=== PATIENT | male | born 1970 | race Caucasian/White ===

== ENCOUNTER → 2017-03-06 | Outpatient (CLI) | payer BC ==
[~2017-03-06] MED LIST: ASCO-96 PO; CHOL500050 PO; IBUP200T5 PO; KETO10TA PO; LOSA50TA6 PO; MAGNESIUM PO; MELA10TA PO; MINO50TA2 PO; MULT-412 PO; OXYC1TAB9 PO; RANI150T4 PO; SULF15DR5 EACHEYE; TAMS0.4C2 PO; TIZA6CAP PO
[2017-03-06 10:14] LABS: ASPARTATE AMINO TRANSFERASE 14 U/L (15-37); BLOOD UREA NITROGEN 17 mg/dL (7-18)
== END | disposition home or self-care (01) ==
LOC: STAR 09:03
PROVIDERS: ATTEND Urology
DX: Z01.818 Encounter for other preprocedural examination (principal); N21.1 Calculus in urethra
CPT/HCPCS: 36415; 80053; 81001; 87086

== ENCOUNTER 2017-03-10 10:44 | Day surgery (SDC) | payer BC ==
[~2017-03-10] VITALS: Ht 175.3 cm; Wt 84.0 kg
[2017-03-10] MEDS ORDERED: LACTATED RINGERS 1,000 ML IV SCH (11:05)
[2017-03-10 11:06] VITALS: BP 126/89
[2017-03-10] MEDS ORDERED: LIDOCAINE 1%, 2ML SQ PRN (11:30)
[2017-03-10] MEDS ORDERED: MIDAZOLAM 1 MG/ML, 2ML ONE (14:46)
[2017-03-10] MEDS ORDERED: FENTANYL PF 250 MCG/5ML ONE (14:46)
[2017-03-10] MEDS ORDERED: OXYcodone/APAP 10/325MG TABLET ONE (16:23)
[2017-03-10] MEDS ORDERED: OXYcodone/APAP 10/325MG TABLET PO ONE (16:30)
[2017-03-10] MEDS ORDERED: PROPOFOL 10 MG/ML, 20ML ONE (16:58)
[2017-03-10] MEDS ORDERED: ONDANSETRON 2MG/ML, 2ML ONE (16:58)
[2017-03-10] MEDS ORDERED: DEXAMETHASONE 4 MG/ML, 1ML ONE (16:58)
[2017-03-10] MEDS ORDERED: PHENYLEPHRINE 10 MG/ML ONE (16:58)
[2017-03-10] MEDS ORDERED: CIPROFLOXACIN/PMX 400MG/200ML 0 ML ONE (17:16)
[2017-03-10] MEDS ORDERED: CIPROFLOXACIN/PMX 400MG/200ML 200 ML ONE (17:17)
[2017-03-10] MEDS ORDERED: hydrALAzine 20 MG/ML, 1ML IV PRN (17:30)
[2017-03-10] MEDS ORDERED: MEPERIDINE/PF 25MG/0.5ML IVPush PRN (17:30)
[2017-03-10] MEDS ORDERED: MIDAZOLAM 1 MG/ML, 2ML IV PRN (17:30)
[2017-03-10] MEDS ORDERED: ONDANSETRON 2MG/ML, 2ML IVPush PRN (17:30)
[2017-03-10] MEDS ORDERED: PROMETHAZINE 25 MG/ML, 1ML IV PRN (17:30)
[2017-03-10] MEDS ORDERED: HYDROmorphone 1 MG/ML, 1ML IV PRN (17:30)
[2017-03-10] MEDS ORDERED: ACETAMINOPHEN 325 MG TABLET PO PRN (17:30)
[2017-03-10] MEDS ORDERED: OXYcodone 5 MG/5 ML ORAL.SOL UDC PO PRN (17:30)
[2017-03-10] MEDS ORDERED: METOCLOPRAMIDE 5 MG/ML, 2ML IV PRN (17:30)
[2017-03-10] MEDS ORDERED: FENTANYL PF 100 MCG/2ML IV PRN (17:30)
[2017-03-10] MEDS ORDERED: LABETALOL 5MG/ML, 20ML IV PRN (17:30)
[2017-03-10] MEDS ORDERED: OXYcodone/APAP 5/325MG TABLET PO PRN (18:30)
[2017-03-10] MEDS ORDERED: MEPERIDINE/PF 25MG/0.5ML ONE (18:40)
[2017-03-10] MEDS ORDERED: OXYcodone 5 MG/5 ML ORAL.SOL UDC ONE (18:41)
[2017-03-10] MEDS ORDERED: OMNIPAQUE 350 MG/ML, 50 ML BOTTLE ONE (18:51)
[2017-03-19 15:06] LABS: CA OXALATE DIHYDRATE 25 % (.); CA OXALATE MONOHYDRATE 65 % (.); URINARY CALCULI COLOR Brown (.); URINARY CALCULI WEIGHT 30.1 mg (.)
== END 2017-03-10 19:55 | disposition home or self-care (01) ==
LOC: OR 10:44 → OUT 19:55
PROVIDERS: ATTEND Urology
DX: N20.2 Calculus of kidney with calculus of ureter (principal); I10 Essential (primary) hypertension; K21.9 Gastro-esophageal reflux disease without esophagitis; Z80.9 Family history of malignant neoplasm, unspecified; Z87.891 Personal history of nicotine dependence; N40.1 Benign prostatic hyperplasia with lower urinary tract symptoms; N13.8 Other obstructive and reflux uropathy
CPT/HCPCS: 52356; 74420; 76000; 82360; 88300; C1726; C1769; C2617; J0744; J1100; J2175; J2250; J2370; J2405; J2704; J3010; J7120; Q9967